=== PATIENT | male | born 1950 | race Caucasian/White ===

== ENCOUNTER 2020-09-08 01:45 | Outpatient (CLI) | payer MEDICARE, SELFPAY ==
[2020-09-08 18:52] LABS: SARS-CoV-2 RNA PCR Negative
== END 2020-09-08 01:46 | disposition home or self-care (01) ==
LOC: ANHCOVIDDT 01:45
PROVIDERS: PCP Internal Medicine; Visit Provider Urology
DX: Z01.812 Encounter for preprocedural laboratory examination (principal); Z20.828 Contact with and (suspected) exposure to other viral communicable diseases
CPT/HCPCS: 87635; C9803; U0003

== ENCOUNTER 2020-09-11 01:13 | Day surgery (SDC) | payer MEDICARE, SELFPAY ==
[2020-09-05 08:31] VITALS: BMI 24.0
[2020-09-11] VITALS (7 sets, daily range): BP systolic 135–152; BP diastolic 68–89; PULSE 74–87; RESP 14–18; TEMP 36.2–36.4; O2SAT 97–100
--- NOTE | 2020-09-11 08:22 | PM.HPGS ---
History of Present Illness History of Present Illness Consent: Risks, benefits, and alternatives have been discussed and questions answered. Patient agrees to proceed with procedure. Chief complaint: prostate CA Narrative: Josh Koch III is a 69 year old male found to have clinically localized CaP after having a PSA of just 2.8. He's opted for pelvic radiation and presents now for transrectal ultrasound with transperineal placement of SpaceOAR. Pt. aware of risks of this procedure including, but not limited to, rectal injury, urinary tract infection with possible sepsis or septic shock, hematuria and inability to deliver the SpaceOAR. He also aware there is no alternative procedure to accomplish the same ends at this time. Review of Systems Cardiovascular: Cardiovascular: Denies chest pain, Denies lightheadedness, Denies palpitations and Denies dyspnea Respiratory: Respiratory: Denies dyspnea Gastrointestinal: Gastrointestinal: Denies diarrhea, Denies nausea and Denies vomiting Genitourinary: Genitourinary: Denies hematuria and Denies dysuria Endocrine: Endocrine: Denies palpitations [facility] Social History Social History Smoking status: Former smoker Additional smoking assessment comments: STATES SMOKED SOCIALLY IN [facility] [place] [facility] 1972 Alcohol intake: current Drinks per week: 7 Substance use: never Substance use type: does not use Living arrangements: with family Spiritual care concerns: No Meds Home Medications and Allergies Home Medications Medication Instructions Recorded Confirmed Type acetaminophen [Tylenol Extra 500 mg PO Q6H PRN 09/05/20 09/05/20 History Strength] atorvastatin 20 mg QAM 09/05/20 09/05/20 History rerucqrw-xly-XB-lycopen-lutein 1 tablet PO DAILY 09/05/20 09/05/20 History [Centrum Silver Men] Allergies Allergy/AdvReac Type Severity Reaction Status Date / Time No Known Allergies Allergy Verified 09/05/20 08:30 Exam Const: General: no acute distress Resp: Effort & Inspection: normal respiratory effort GI: Inspection: non-distended GI Palp: No abdominal tenderness and No Guarding due to palpation present (GI) Auscultation: normal bowel sounds Assessment and Plan Assessment and plan (1) Prostate cancer: Code(s): C61 - Malignant neoplasm of prostate Status: Acute Assessment and Plan: Transrectal ultrasound with transperineal placement of SpaceOAR. Pt. aware of risks of this procedure including, but not limited to, rectal injury, urinary tract infection with possible sepsis or septic shock, hematuria and inability to deliver the SpaceOAR. He also aware there is no alternative procedure to accomplish the same ends at this time.
[2020-09-11] MEDS: LACTATED RINGERS 1,000 ML 30 ML IV CONT ×2 (10:45→16:31)
--- NOTE | 2020-09-11 11:40 | WPDANESEPPF ---
Anes - Initial Pre Proc Eval Procedure: Operation Date: 09/11/20 12:15 Proposed Procedures p Insertion SpaceOAR Hydrogel System - Nicholas Boston MD Date/Time: 09/11/20 11:40 Surgeon: Nicholas Boston MD Pre Op Diagnosis: prostate CA Patient Data Age: 69 Gender: M Height: 6 ft 2 in Weight: 86.5 kg Last Vital Signs Temp 97.6 F 09/11/20 10:25 Pulse 87 09/11/20 10:25 Resp 14 09/11/20 10:25 BP 135/71 09/11/20 10:25 Pulse Ox 100 09/11/20 10:25 Allergies Allergy/AdvReac Type Severity Reaction Status Date / Time No Known Allergies Allergy Verified 09/11/20 10:33 Home Medications Medication Instructions Recorded Confirmed Type acetaminophen [Tylenol Extra 500 mg PO Q6H PRN 09/05/20 09/11/20 History Strength] atorvastatin 20 mg QAM 09/05/20 09/11/20 History peanqonq-bmu-CM-lycopen-lutein 1 tablet PO DAILY 09/05/20 09/11/20 History [Centrum Silver Men] Patient hx anesthesia problems: none Family hx anesthesia problems: none PMFSH Past Medical History Medical History (Updated 09/11/20 @ 11:39 by López Pimentel MD) GERD (gastroesophageal reflux disease) Hyperlipidemia Prostate cancer Social History Social History Smoking status: Former smoker Additional smoking assessment comments: STATES SMOKED SOCIALLY IN [facility] 1972 Alcohol intake: current Drinks per week: 7 Substance use: never Substance use type: does not use Living arrangements: with family Spiritual care concerns: No Anes - Eval Final PreProcedure Day of Procedure 09/11/20 11:40 Patient weight: normal Heart: regular rate and rhythm Lungs: clear to auscultation Airway: Mallampati scale class II Neurological: alert and oriented Last oral intake: >/= 8 hours ASA classification: III Emergent: no Anesthetic plan: proceed Anesthesia type and monitoring: general LMA and standard monitoring Informed Consent: The patient's anesthetic plan and its attendant risks and benefits were discussed with the patient/family/POA. Questions were solicited and answers provided to the satisfaction of the patient/family/POA.
--- NOTE | 2020-09-11 13:37 | SUR.PREOP ---
1300 dr ny here and talked to pt about delay in procedure misunderstanding with equipment and not available until closer to 4 pm.
--- NOTE | 2020-09-11 15:20 | SUR.PREOP ---
1500 pt informed of further delay of procedure.
--- NOTE | 2020-09-11 15:39 | WPDHPUPDATE1 ---
History and Physical Update Update Date/Time: 09/11/20 15:39 History and Physical has been reviewed, including an updated exam of the patient. There are NO changes in the patient's condition. Risks, benefits, and alternatives have been discussed and questions answered. Patient agrees to proceed with procedure.
[2020-09-11] MEDS: ceFAZolin 2 GM/D5W 50 ML 2 GM/50 ML BAG IVPB (16:03)
--- NOTE | 2020-09-11 16:28 | P.OP_ITS ---
Procedure Note - Detailed Date of procedure: 09/11/20 Pre-op diagnosis: prostate CA Post-op diagnosis: same Procedure performed: Insertion SpaceOAR Description of procedure: This patient has been diagnosed with prostate cancer. Patient has met with a radiation oncologist who has prescribed a course of radiation for treatment of the malignancy. Please refer to the Radiation Oncologist's note for radiation method, dose, number of fractions. After discussing with the radiation oncologist and the patient, it has been agreed upon to proceed with SpaceOAR placement. The purpose of SpaceOAR is to reduce rectal irradiation during radiation therapy by placing an absorbable polyethylene glycol (PEG) hydrogel (SpaceOAR) into perirectal fat space, thereby pushing the rectum away from the prostate. Prior to the procedure, a timeout was performed confirming the patient's identity and planned the procedure. Anesthesia was induced without complication. Antibiotics were administered prophylactically, and the patient completed an enema at home prior to the procedure. The patient was positioned in the dorsal lithotomy position. A transrectal ultrasound probe was inserted per rectum with clear visualization of the prostatic base and apex. SpaceOAR hydrogel was prepared as described in the belt conveyor drier?s 'Instructions For Use'. Under transrectal ultrasound guidance, a 15 cm 18G needle was inserted, transperineal, through the rectourethralis muscle and the needle tip advanced into the perirectal fat posterior to the prostate. The needle position, and downward bevel, were confirmed in both sagittal and axial lopez. 3-5cc [address] St erile Saline was used to hydro-dissect the space between the Denonvilliers? fascia and anterior rectal wall. Aspiration did not yield any bleeding. With the needle tip at mid gland, the axial field was viewed to confirm the needle was not in the rectal wall -- movement of the needle tip without corresponding movement of the rectal wall confirmed perirectal placement. The assembled SpaceOAR delivery system was then attached to the 18G needle. Under ultrasound guidance in the sagittal plane, a smooth, continuous injection technique was used to dispense all 10cc of the SpaceOAR hydrogel into the space between the prostate and rectum. Optimal visualization of the needle during hydrogel administration was maintained at all times. An axial measurement of the space between the prostate (mid gland) and rectum immediately post-SpaceOAR injection was noted and measured 83mm. No suspected penetration or compromise of the rectal wall occurred. Anesthesia: GLMA Surgeon: Nicholas Boston MD Estimated blood loss (mL): 0 Drains: No Packing: No Pathology: none sent Complications: No immediate complications Condition: stable Disposition: PACU
[2020-09-11] MEDS: fentaNYL CITRATE INJ (*CRX) 100 MCG/2 ML VIAL 25 MCG IV PUSH ×4 (16:43→16:54)
[2020-09-11] MEDS: oxyCODONE HCL (*CRX) 5 MG TAB IR PO (17:01)
--- NOTE | 2020-09-11 17:08 | SUR.PHASEI ---
PT AWAKE AND ALERT. STATES PAIN MODERATE AT 5/10. VERY TALKATIVE. READY TO SIT IN RECLINER.
== END 2020-09-11 18:20 | disposition home or self-care (01) ==
PROVIDERS: PCP Internal Medicine; Visit Provider Urology
PROC: (CPT 55874; principal; 2020-09-11 12:15)
DX: C61 Malignant neoplasm of prostate (principal); E78.5 Hyperlipidemia, unspecified; K21.9 Gastro-esophageal reflux disease without esophagitis
CPT/HCPCS: 55874; A9270; C1889; J0690; J2250; J3010; J7120